=== PATIENT | female | born 1965 | race Caucasian/White ===

== ENCOUNTER 2019-01-17 11:30 | Emergency (ER) | payer BC, MEDICAID ==
[~2019-01-17] VITALS: Ht 160 cm; Wt 63.5 kg
--- NOTE | 2019-01-17 12:34 | NUR ---
Patient discharged to home in stable conditon. Written and verbal after care instructions given. Patient verbalizes understanding of instructions.PT WALKS IN STEADY GAIT.
== END 2019-01-17 12:43 | disposition home or self-care (01) ==
LOC: ER 11:34
DX: M17.12 Unilateral primary osteoarthritis, left knee (principal)
CPT/HCPCS: A4663

== ENCOUNTER 2021-11-10 19:39 | Emergency (ER) | payer MEDICAID, OTHER ==
[~2021-11-10] VITALS: Ht 162.6 cm; Wt 77.6 kg
--- NOTE | 2021-11-10 19:55 | NUR ---
Dr. Banerjee at bedside for MSE.
[2021-11-10 20:12] LABS: HEMATOCRIT 41.1 % (31.2-41.9); MEAN CORPUSCULAR HEMOGLOBIN 29.4 uug (24.7-32.8); MEAN CORPUSCULAR VOLUME 90.5 fL (75.5-95.3); PLATELET COUNT (AUTO) 338 K/uL (179-408)
[2021-11-10] MEDS ORDERED: TDAP DIPH,PERTUSS,TET VAC/PF 0.5 ML DISP.SYRIN IM ONE ×2 (20:15→20:24)
[2021-11-10] MEDS ORDERED: LIDOCAINE 1%-EPI 1:100,000 20 ML VIAL ONE (20:19)
[2021-11-10 20:33] LABS: ALANINE AMINOTRANSFERASE 26 U/L (14-59); ALKALINE PHOSPHATASE 81 U/L (50-136); ASPARTATE AMINOTRANSFERASE 10 U/L (15-37); BILIRUBIN,DIRECT < 0.1 mg/dL (0.0-0.2); BILIRUBIN,TOTAL 0.1 mg/dL (0.2-1.0); CARBON DIOXIDE 30 mmol/L (21-32); CHLORIDE 104 mmol/L (98-107); CREATININE 0.8 mg/dL (0.6-1.3); GLUCOSE 116 mg/dL (74-106); UREA NITROGEN, BLOOD 18 mg/dL (7-18)
--- NOTE | 2021-11-10 20:53 | NUR ---
Pt out of ER for CT.
--- NOTE | 2021-11-10 21:05 | NUR ---
Pt back to ER from CT.
--- NOTE | 2021-11-10 23:02 | NUR ---
Patient discharged to home in stable condition. Written and verbal after care instructions given. Patient verbalizes understanding of instructions. Stressed follow up or return to ER for worsening s/s. Patient out of ER with steady gait, no acute signs of distress, VSS, all belongings taken, provided with copies of lab and CT results.
[2021-11-10 23:04] VITALS: BP 135/79
== END 2021-11-10 23:05 | disposition home or self-care (01) ==
LOC: ER 19:39
DX: R55 Syncope and collapse (principal); S01.01XA Laceration without foreign body of scalp, initial encounter; W18.30XA Fall on same level, unspecified, initial encounter; Y92.89 Other specified places as the place of occurrence of the external cause; R94.31 Abnormal electrocardiogram [ECG] [EKG]
CPT/HCPCS: 99285; 70450; 71045; 80076; 80048; 85025; 84484 ×2; 36415; 90715; 90471; 12002; 93005; J3490; A4663